=== PATIENT | male | born 1970 | race Hispanic/Latino ===

== ENCOUNTER 2021-03-16 11:35 | Emergency (ER) | payer OTHER, SELFPAY ==
[2021-03-16] VITALS (9 sets, daily range): BP systolic 148–180; BP diastolic 75–141; PULSE 78–95; RESP 16–26; TEMP 36.4; O2SAT 94–100; BMI 23.6
--- NOTE | 2021-03-16 11:54 | EX.ED.UPPERE ---
HPI History of Present Illness Chief Complaint: Upper Extremity Injury Informant: patient and friend Narrative Narrative: Patient had a slip and fall earlier today. He fell on right hand. Denies any other injury. I note he has a little extension lag of long finger on the right. But evidently that is old and not new or different. He was seen at urgent care. He was found to have a fracture. They contacted orthopedics who referred him in here for reduction. He is denying numbness or tingling at this time. He does have limited motion of the right thumb due to pain though. Denies any medical conditions No known drug allergies No medications No recent surgeries [facility] Medical History (Updated 03/16/21 @ 14:[address] Jeferson Kumar MD) Fracture of right distal radius Home Medications oxycodone-acetaminophen [Percocet] 1 tab PO Q6H PRN 5 Days #20 tab 03/16/21 [Rx Last Taken Unknown] Allergy/AdvReac Type Severity Reaction Status Date / Time No Known Allergies Allergy Unverified 03/16/21 11:15 Social History (Updated 03/16/21 @ 11:16 by Trina Lin) Smoking Status: Never smoker alcohol intake: current alcohol intake frequency: a few times a week ROS ROS ED Constitutional Constitutional ED: Denies fever(s) or subjective ENT ENT ED: Denies ear pain or rhinorrhea Cardiovascular Cardiovascular: Denies chest pain or palpitations Respiratory/Chest Respiratory/Chest: Denies dyspnea Gastrointestinal Gastrointestinal: Denies nausea or vomiting Musculoskeletal Musculoskeletal: Reports other Details: See history of present illness. ; Denies myalgias or neck pain Integumentary Denies rash Neurologic Neurologic: Denies paresthesias or weakness Hematologic/Lymphatic Hematologic/Lymphatic: Denies easy bleeding or easy bruising Allergic/Immunologic Allergic/Immunologic ED: Denies urticaria EXAM Physical Exam Const Vital Signs: 03/16/21 11:37 Temperature 97.6 F L Temperature Source Temporal Pulse Rate 85 Respiratory Rate 16 Blood Pressure 152/84 H Blood Pressure Mean 106 Pulse Ox 96 Oxygen Delivery Method Room Air Positive well nourished and well developed General Appearance ED: well developed and NAD HEENT HEENT Narrative: Mallampati 1 normocephalic and atraumatic Chest Wall inspection of chest normal and palpation of chest normal Resp normal respiratory effort and clear to auscultation bilaterally Effort and Inspection: Negative for pain with movement Auscultation: Negative for rales, rhonchi or wheezes Cardio regular rate and regular rhythm GI non-tender Palpation: soft Back/Spine no CVA tenderness Extremity Extremity Narrative: Right upper extremity is in a splint. This was not taken down as I have already looked at the x-rays online. This would cause more discomfort to the patient. This will be looked at when we do sedation. Neuro oriented x3 Sensorium / Orientation: alert Psych mental status grossly normal Skin Lesions: no lesions Rashes: no rashes MDM MDM MDM Narrative Medical decision making narrative: Proceed: Procedural sedation and fracture reduction: I discussed options with the patient. We did proceed with sedation. Last meal was this morning. Mallampati of 1. No history of complications with medicines. Overall a very healthy individual. He received propofol IV. This was given as 40 mg, 60 mg, 40 mg, 20 mg. We wanted to get good relaxation. Myself and another physician were used to put traction countertraction and then reduction of this fracture fragment. This was highly unstable. Initially after reduction it fell back. We then reduced it again. We held it in position during the entire time of splinting. He with volar angulation of the wrist to help hold fracture fragment in place. He overall tolerated the procedure quite well. He woke up with good saturations alertness and no complaints. We had no problems with blood pressure saturations during the procedure. Post reduction films show significant improvement in position. I have sent these images digitally through secure system to Dr. Junior who had already been contacted about this patient from urgent care. Discharge Plan Triage Chief Complaint: Upper Extremity Injury ED Provider: Jeferson Kumar Dx/Rx/DC Orders Clinical Impression: Colles' fracture of right radius, initial encounter for closed fracture, H/O reduction of closed fracture, History of conscious sedation Instructions: ED Colles Fracture, Reduction Required Prescriptions: New oxycodone-acetaminophen [Percocet] 5-325 mg tablet 1 tab PO Q6H PRN (Reason: pain) 5 Days Qty: 20 RF: 0 Primary Care Provider: Winter Trevizo Referrals: Neil Aden DO [STAFF PHYSICIAN] - 3-5 Days Winter Trevizo [Primary Care Provider] - Disposition Disposition: Home, Self Care
--- NOTE | 2021-03-16 14:18 | RAD_ITS ---
STUDY: X-RAY - RIGHT WRIST REASON FOR EXAM: Male, 50 years old. Post reduction TECHNIQUE: 3 view(s) of the wrist were obtained. COMPARISON: Comparison is made with prior study done earlier today. FINDINGS: Satisfactory reduction of the distal radial fracture. Avulsion fracture of the ulnar styloid. Normal radiocarpal articulation. Normal distal radioulnar articulation. Normal carpal bones. Normal carpal articulations. Normal carpometacarpal articulation of the thumb. Normal second through fifth carpometacarpal articulations. Normal visualized metacarpal bones. Soft tissue swelling. RAD/Wrist min 3 Views IMPRESSION: Satisfactory reduction of the comminuted fracture of the distal radial metaphysis. Avulsion fracture of the ulnar styloid. Electronically Signed: Steve Simpson MD at 14:53 EST ,
== END 2021-03-16 23:59 | disposition home or self-care (01) ==
PROVIDERS: Emergency Provider Emergency Medicine; Visit Provider Emergency Medicine
DX: S52.531A Colles' fracture of right radius, initial encounter for closed fracture (principal); W01.0XXA Fall on same level from slipping, tripping and stumbling without subsequent striking against object, initial encounter
CPT/HCPCS: 29125; 73110; 99152; 99283; J7030; A4216

== ENCOUNTER → 2021-09-08 | Outpatient (CLI) | payer SELFPAY ==
--- NOTE | 2021-09-08 11:55 | RAD_ITS ---
INDICATION: Pleurodynia EXAMINATION/TECHNIQUE: X-RAY - XR Chest 2 Views COMPARISON: None. FINDINGS: The lungs are clear. The cardiomediastinal silhouette is unremarkable. No pleural effusion or pneumothorax. No acute osseous abnormalities. RAD/Chest PA and Lateral IMPRESSION: No acute radiographic abnormalities. Electronically Signed: Francisco Javier Floyd MD at 2:57 EDT ,
== END | disposition home or self-care (01) ==
PROVIDERS: Referring Provider Nurse Practitioner Adult Health; Visit Provider Nurse Practitioner Adult Health
DX: R07.81 Pleurodynia (principal)
CPT/HCPCS: 71046